=== PATIENT | female | born 1985 | race Caucasian/White ===

== ENCOUNTER → 2020-08-05 12:37 | Outpatient (CLI) | payer BC, SELFPAY ==
--- NOTE | ~2020-08-05 | MM_ITS ---
EXAMINATION: MM screening chirag BI w denny HISTORY: Screening TECHNIQUE: Craniocaudal and mediolateral oblique 3-D tomosynthesis images were obtained and synthetic 2-D images were generated. CAD analysis was submitted and interpreted. COMPARISON: No prior mammogram is available for comparison at this institution. BREAST PARENCHYMAL COMPOSITION: The breasts are heterogenously dense, which may obscure small masses. FINDINGS: There is no evidence of suspicious mass, calcification, or architectural distortion to sugg est malignancy in either breast. There has been no suspicious interval change. IMPRESSION: 1. No mammographic evidence of malignancy. 2. Recommend routine screening mammography in one year. BI-RADS Category 1: Negative Reviewed, dictated and finalized at location A. AND OUT CIGAR MAKER HAND
== END ==
PROVIDERS: PCP Internal Medicine
DX: Z12.31 Encounter for screening mammogram for malignant neoplasm of breast (principal)
CPT/HCPCS: 77063; 77067

== ENCOUNTER → 2022-11-12 13:40 | Outpatient (CLI) | payer BC, SELFPAY ==
--- NOTE | ~2022-11-12 | MM_ITS ---
EXAMINATION: MM screening chirag BI w denny HISTORY: Screening mammogram TECHNIQUE: Craniocaudal and mediolateral oblique 3-D tomosynthesis images were obtained and synthetic 2-D images were generated. CAD analysis was submitted and interpreted. COMPARISON: 08/05/2020 BREAST PARENCHYMAL COMPOSITION: The breasts are heterogeneously dense, which may obscure small masses . FINDINGS: No suspicious mass, calcification, or architectural distortion are identified in either miranda ast to suggest malignancy. There has been no suspicious interval change. IMPRESSION: 1. No mammographic evidence of malignancy. 2. Recommend routine screening mammography in one year. BI-RADS Category 1: Negative Reviewed, dictated and finalized at location A.
== END ==
PROVIDERS: PCP Internal Medicine; Visit Provider Obstetrics & Gynecology
DX: Z12.31 Encounter for screening mammogram for malignant neoplasm of breast (principal)
CPT/HCPCS: 77063; 77067

== ENCOUNTER 2024-03-14 10:28 | Outpatient (CLI) | payer OTHER, SELFPAY ==
--- NOTE | ~2024-03-14 | MM_ITS ---
EXAMINATION: MM screening chirag BI w denny HISTORY: Screening TECHNIQUE: Craniocaudal and mediolateral oblique 3-D tomosynthesis images were obtained and synthetic 2-D images were generated. CAD analysis was submitted and interpreted. COMPARISON: Comparison to multiple prior studies sequentially, with oldest reviewed study dated 08/05. BREAST PARENCHYMAL COMPOSITION: Dense: The breasts are extremely dense, which lowers the sensitivity of mammography. FINDINGS: There is no evidence of suspicious mass, calcification, or architectural distortion to sugg est malignancy in either breast. There has been no suspicious interval change. IMPRESSION: 1. No mammographic evidence of malignancy. 2. Recommend routine screening mammography in one year. BI-RADS Category 1: Negative Reviewed, dictated and finalized at location B.
== END 2024-03-14 10:29 ==
LOC: MICIMG 10:32
PROVIDERS: PCP Obstetrics & Gynecology; Visit Provider Internal Medicine
DX: Z12.31 Encounter for screening mammogram for malignant neoplasm of breast (principal)
CPT/HCPCS: 77063; 77067

== ENCOUNTER 2025-05-30 13:33 | Outpatient (CLI) | payer OTHER, SELFPAY ==
--- NOTE | ~2025-05-30 | MM_ITS ---
EXAMINATION: MM screening chirag BI w denny HISTORY: Screening TECHNIQUE: Craniocaudal and mediolateral oblique 3-D tomosynthesis images were obtained and synthetic 2-D images were generated. CAD analysis was submitted and interpreted. COMPARISON: Comparison to multiple prior studies sequentially, with oldest reviewed study dated 08/05/2020. BREAST PARENCHYMAL COMPOSITION: Dense: The breasts are extremely dense, which lowers the sensitivity of mammography. FINDINGS: There is an asymmetry in the left breast in the periareolar location on CC view. The right breast is stable without evidence for malignancy. IMPRESSION: 1. New left breast asymmetry. 2. Additional mammographic views and possible breast ultrasound are recommended. BI-RADS Category 0: Incomplete: Needs additional imaging evaluation. Reviewed, dictated and finalized at location O. ITURE FINISHER HELPER IMPRESSION: 1. New left breast asymmetry. 2. Additional mammographic views and possible breast ultrasound are recommended . BI-RADS Category 0: Incomplete: Needs additional imaging evaluation.
== END 2025-05-30 13:34 | disposition home or self-care (01) ==
LOC: MICIMG 13:34
PROVIDERS: PCP Obstetrics & Gynecology
DX: Z12.31 Encounter for screening mammogram for malignant neoplasm of breast (principal); N64.89 Other specified disorders of breast
CPT/HCPCS: 77063; 77067

== ENCOUNTER 2025-07-23 08:59 | Outpatient (CLI) | payer OTHER, SELFPAY ==
--- OUTSIDE RECORDS SUMMARY | 2025-07-22 09:30 | XMS_ITS | Encounter Summary ---
Author Organization [facility] Healthcare Address [address] [place] [address] Care Team Providers Care Service Desk Associate Name Role Phone Irena Mcgee MD Primary Care Provider + Reason for Visit * Reason Comments Gynecologic Exam Encounter Details Date Type Department Care Team (Late st Contact Info) Description 07/22/2025 9:30 AM SENIOR MANAGER ASSET PROTECTION Office Visit [facility] [address] [address] Debi Gould MD [address] [id number] Routine gynecological examination (Primary Dx); Cervical cancer screening; Screening breast examination Social History Tobacco Use Types Packs/Day Years Used Date Smoking Tobacco: Never Smokeless Tobacco: Never Tobacco Cessation:Counseling Given: Not Answered Alcohol Use Standard Drinks/Week Comments No 0 (1 standard drink = 0.6 oz pur e alcohol) AUDIT-C Answer Date Recorded Q1: How often do you have a drink containing alc ohol? 2-4 times a month 12/04/2024 Q2: How many drinks containi ng alcohol do you have on a typical day when you are drinking? 1 or 2 12/04/2024 Frequency of Binge Drinking Not on file 11/22 PHQ-2 Answer Date Recorded PHQ-2 Total Score (If total score is 3 or more points, staff should administer the PHQ-9) 0 12/04/2024 Comments No Sex and Gender Information Value Date Recorded Sex Assigned at Not on file Legal Sex Female 5:54 AM SENIOR MANAGER ASSET PROTECTION Gender Identity Not on file Sexual Orientation Not on file documented as of this encounter Last Filed Vital Signs Vital Sign Reading Time Taken Comments Blood Pressure 128/81 07/22/2025 9:37 AM SENIOR MANAGER ASSET PROTECTION Pulse - - Temperature - - Respiratory Rate - - Oxygen Saturation - - Inhaled Oxygen Concentration - - Weight 73.5 kg (162 lb) 07/22/2025 9:37 AM SENIOR MANAGER ASSET PROTECTION Height 162.6 cm (5' 4.02) 07/22/2025 9:37 AM CS T Body Mass Index 27.79 07/22/2025 9:37 AM SENIOR MANAGER ASSET PROTECTION documented in this encounter Functional Status * BP Location Answer Date of Assessment Author Left arm 07/22/2025 9:37 AM SENIOR MANAGER ASSET PROTECTION Ernesto Thompson MA * BP Location Answer Date of Assessment Author Left arm 07/22/2025 9:37 AM SENIOR MANAGER ASSET PROTECTION Ernesto Thompson MA documented as of this encounter Ordered Prescriptions Prescription Sig Dispense Quantity Refills Last Filled Start Date End Date desog-e.estradioL/e .estradioL (Kariva, 28,) 0.15-0.02 mgx21 /0.01 mg x 5 per tablet Take 1 tablet by mouth daily 84 tablet 3 07/22/2025 documented in this encounter Plan of Treatment Pending Results Name Type Priority Associated Diagnoses Date/Time Pap with reflex to High Risk HPV and Genotyping (Cytology Component) Pathology and Cytology Routine Cervical cancer screening 07/22/2025 10:12 AM SENIOR MANAGER ASSET PROTECTION Scheduled Orders Name Type Priority Associated Diagnoses Orde r Schedule Pap with reflex to High Risk HPV and Genotyping (Cytology Component) Pathology and Cytology Routine Cervical cancer screening Expected: 07/22/2025, Expires: 07/22/2026 documented as of this encounter Results * ThinPrep processing (Molecular component) (07/22/2025 12:00 PM SENIOR MANAGER ASSET PROTECTION) ThinPrep processing (Molecular component) Specimen received for processing. Endocervical 07/22/2025 12:0 0 PM SENIOR MANAGER ASSET PROTECTION 07/22/2025 4:48 PM SENIOR MANAGER ASSET PROTECTION us Debi Guold MD LAB BODY FLUIDS AND STOOLS ORDERABLES Final Result [facility] [address] Department [place] [address] documented in this encounter Visit Diagnoses Diagnosis Routine gynecological examination- Primary Cervical cancer screening Screening for malignant neoplasm of the cervix Screening breast examination Other screening breast examination documented in this encounter Discontinued Medications Medication Sig Discontinue Reason Start Date End Da te desog-e.estradioL/e.estr adioL (Kariva, 28,) 0.15-0.02 mgx21 /0.01 mg x 5 per tablet TAKE 1 TABLET BY MOUTH EVERY DAY Reorder 02/19/2025 07/22/2025 documented as of this encounter Care Teams Service Desk Associate Relationship Specialty Start Date End Date Irena Mcgee MD [facility] [address] Kelley [address] [address] PCP - General Internal Medicine 12/04/24 documented as of this encounter
--- OUTSIDE RECORDS SUMMARY | 2025-07-22 12:56 | XMS_ITS | Encounter Summary ---
Author Organization [facility] Healthcare Address [address] [place] [address] Care Team Providers Care Regional Rehabilitation Director Name Role Phone Irena Mcgee MD Primary Care Provider + Encounter Details Date Type Department Care Team (Latest Contact Info) Description 07/22/2025 12:56 PM SHAG TRUCK DRIVER - 07/22/2025 11:59 PM SHAG TRUCK DRIVER Hospital Encounter [address] [address] Cervical cancer screening Discharge Disposition: Discharge to home or self care Social History Tobacco Use Types Packs/Day Years Used Date Smoking Tobacco: Never Smokeless Tobacco: Never Alcohol Use Standard Drinks/Week Comments No 0 [...] on file Legal Sex Female 5:54 AM SHAG TRUCK DRIVER Gender Identity Not on file Sexual Orientation Not on file documented as of this encounter Medications at Time of Discharge amLODIPine (NORVASC) 5 mg tablet Take 1 tablet (5 mg total) by mouth daily 90 tablet 4 02/08/2025 02/08/2026 cholecalciferol (VITAMIN D-3) 5,000 unit capsule Take 1 capsule (5,000 Units total) by mouth daily desog-e.estradioL /e.estradioL (Kariva, 28,) 0.15-0.02 mgx21 /0.01 mg x 5 per tablet Take 1 tablet by mouth daily 84 tablet 3 07/22/2025 documented as of this encounter Discharge Disposition Disposition Code Departure Means Destination Discharge to home or self care documented in this encounter Plan of Treatment Pending Results Name Type Priority Associated Diagnoses Date/Time Pap with reflex to High Risk HPV and Genotyping (Cytology Component) Pathology and Cytology Routine Cervical cancer screening 07/22/2025 10:12 AM SHAG TRUCK DRIVER Scheduled Orders Name Type Priority Associated Diagnoses Order Schedule Pap with reflex to High Risk HPV and Genotyping (Cytology Component) Pathology and Cytology Routine Cervical cancer screening Once for 1 Occurrences starting 07/22/2025 until 07/22/2025 documented as of this encounter Procedures Procedure Name Priority Date/Time Associated Diagnosis Comments THINPREP PROCESSING (MOLECULAR COMPONENT) Routine 07/22/2025 12:00 PM SHAG TRUCK DRIVER Cervical cancer screening documented in this encounter Results * ThinPrep processing (Molecular component) (07/22/2025 12:00 PM SHAG TRUCK DRIVER) ThinPrep processing (Molecular component) Specimen received for processing. Endocervical 07/22/2025 12:0 0 PM SHAG TRUCK DRIVER 07/22/2025 4:48 PM SHAG TRUCK DRIVER Debi Gould MD LAB BODY FLUIDS AND STOOLS ORDERABLES Final Result [facility] [address] Department of Laboratories [place], [place] [phone] documented in this encounter Visit Diagnoses Diagnosis Cervical cancer screening Screening for malignant neoplasm of the cervix documented in this encounter Care Teams Regional Rehabilitation Director Relationship Specialty Start Date End Date Irena Mcgee MD [address] [place] [address] DR Allie HURTADO [address] [place] [id number] PCP - General Internal Medicine 12/04/24 documented as of this encounter
--- NOTE | ~2025-07-23 | MMUS_ITS ---
EXAMINATION: MM diagnostic chirag LT w denny, Additional imaging US, US breast LT limited HISTORY: Additional imaging TECHNIQUE: Craniocaudal and mediolateral oblique 3-D tomosynthesis images were obtained and synthetic 2-D images were generated. CAD analysis was submitted and interpreted. Grayscale sonography over the area(s) of interest with color Doppler if there is a finding. COMPARISON: May 30. Multiple older prior studies. BREAST PARENCHYMAL COMPOSITION: Dense: The breasts are extremely dense, which limits evaluation of noncalcified lesions MAMMOGRAM FINDINGS: There are multiple tubular structures in the retroareolar region. There is a persistent circumscribed mass in the retroareolar region as well. There are no suspicious calcifications. No unexplained architectural distortion is seen. There are no skin or nipple abnormalities identified. There is no adenopathy seen on the images submitted. ULTRASOUND FINDINGS: In the retroareolar region, There are multiple dilated, fluid-filled ducts. They contain mobile debris. There are ducts that appear to be entirely filled with debris. There is one duct in the 3:00 retroareolar region with suggestion of some rounded filling defects, not well from the remainder of the duct's debris. These are marked on the images from the additional ultrasound imaging of July 26. In addition, in the retroareolar region, there is an 8 mm, ovoid, hypoechoic mass with a parallel orientation. This is not definitively related to a duct, but it is at least adjacent to a duct. Origination in the duct is not excluded. There is an additional 6 mm, circumscribed, hypoechoic mass with a linear echogenic septation or striation at 3:00. This is very superficially located, at least partially in the skin layer. It may represent a skin lesion, such as an epidermoid cyst, although this cannot be stated with certainty. There are multiple small, simple cysts present. There is no axillary adenopathy. Benign-appearing lymph nodes are seen in the axilla. IMPRESSION: 1. Retroareolar mass is indeterminate, and ultrasound-guided core biopsy is recommended. 2. Duct entirely filled with debris at 3:00, with some of the filling defects appearing somewhat rounded. A second ultrasound-guided biopsy should be considered, with a decision made at the time of biopsy by the sampling radiologist. 2. There is an additional lesion which could represent a skin lesion. Six-month follow-up of this structure is recommended. BI-RADS 4 - Suspicious for malignancy. Tissue diagnosis is recommended. Reviewed, dictated and finalized at location A. R TUNE UP SPECIALIST IMPRESSION: 1. Retroareolar mass is indeterminate, and ultrasound-guided core biopsy is rec ommended. 2. Duct entirely filled with debris at 3:00, with some of the filling defects a ppearing somewhat rounded. A second ultrasound-guided biopsy should be consider ed, with a decision made at the time of biopsy by the sampling radiologist. 2. There is an additional lesion which could represent a skin lesion. Six-month follow-up of this structure is recommended. BI-RADS 4 - Suspicious for malignancy. Tissue diagnosis is recommended.
--- OUTSIDE RECORDS SUMMARY | 2025-07-23 09:14 | XMS_ITS | Encounter Summary ---
Author Organization [facility] Address [address] [place] [address] Phone Care Team Providers Care Sweeper Cleaner Industrial Name Role Phone Usman Zhao MD Primary Care Provider [phone] Irena Mcgee MD Primary Care Provider + Encounter Details Date Type Department Care Team (Latest Contact Info) Description 11/02/2017 Orders Only [facility] CONVERSION Scanning, Provider Social History Tobacco Use Types Packs/Day Years Used Date Smoking Tobacco: Never Smokeless Tobacco: Never Alcohol Use Standard Drinks/Week Comments No 0 (1 standard drink = 0.6 oz pur e alcohol) Comments Yes Sex and Gender Information Value Date Recorded Sex Assigned at Not on file Legal Sex Female 5:54 AM B2B SALES CONSULTANT Gender Identity Not on file Sexual Orientation Not on file documented as of this encounter Plan of Treatment Not on file documented as of this encounter Procedures Procedure Name Priority Date/Time Associated Diagnosis Comments OBSTETRIC/GYNECOLOGY ULTRASONOGRAPHY REPORT 12/02/2017 8:44 AM CDT OBSTETRIC/GYNECOLOGY ULTRASONOGRAPHY REPORT 11/02/2017 10:21 AM CDT documented in this encounter Results * OBSTETRIC/GYNECOLOGY ULTRASONOGRAPHY REPORT (12/02/2017 8:44 AM CDT) Anatomical Region Laterality Modality Ultrasound us Provider Scanning IMG OB US PROCEDURES Final Res ult * OBSTETRIC/GYNECOLOGY ULTRASONOGRAPHY REPORT (11/02/2017 10:21 AM CDT) Anatomical Region Laterality Modality Ultrasound us Provider Scanning IMG OB US PROCEDURES Final Res ult documented in this encounter Visit Diagnoses Not on filedocumented in this encounter Care Teams Sweeper Cleaner Industrial Relationship Specialty Start Date End Date Usman Zhao MD PCP - General 04/29/17 12/03/24 Irena Mcgee MD [address] [place] [address] DR Allie HURTADO [address] [place] [id number] PCP - General Internal Medicine 12/04/24 documented as of this encounter
--- OUTSIDE RECORDS SUMMARY | 2025-07-23 09:14 | XMS_ITS | Clinical Summary ---
Author Organization [employer] (now [employer] Amauri allen [facility] Address [address] [facility] [address] [place] [address] Phone Care Team Providers Care Bench Hand Machine Name Role Phone Usman Zhao MD Primary Care Provider [phone] Social History Tobacco Use Types Packs/Day Years Used Date Smoking Tobacco: Never Assessed Comments Unknown Sex and Gender Information Value Date Recorded Sex Assigned at Not on file Legal Sex Female 10:21 AM SAFETY TECH Gender Identity Not on file Sexual Orientation Not on file Plan of Treatment Health Maintenance Due Date Last Done Comments DTAP/TDAP/TD VACCINES (1 - Tdap) 2002 HEPATITIS B VACCINES (1 of 3 - 19+ 3-dose series) 02/23 HPV/Cotest (21-29) 2004 CERVICAL CANCER SCREENING 2013 HPV/Cotest (30-65) 2013 PAP SMEAR 2013 BREAST CANCER SCREENING 2023 INFLUENZA VACCINE (#1) 2025 HPV VACCINES (No Doses Required) Completed Insurance [facility] BLUE ACCESS/TRUE BLUE PPO Care Teams Bench Hand Machine Relationship Specialty Start Date End Date Usman Zhao MD PCP - General Internal Medicine 08/22/17
--- OUTSIDE RECORDS SUMMARY | 2025-07-23 09:14 | XMS_ITS | Clinical Summary ---
Author Organization [facility] C Address [address] [place] [address] Phone Care Team Providers Care Line Maintenance Supervisor Name Role Phone Irena Mcgee MD Primary Care Provider + Allergies No known active allergies Medications cholecalciferol (VITAMIN D-3) 5,000 unit capsule Take 1 capsule (5,000 Units total) by mouth daily Active amLODIPine (NORVASC) 5 mg tablet Take 1 tablet (5 mg total) by mouth daily 90 tablet 4 5 02/09/20 26 Active desog-e.estradi oL/e.estradioL (Kariva, 28,) 0.15-0.02 mgx21 /0.01 mg x 5 per tablet Take 1 tablet by mouth daily 84 tablet 3 5 Active desog-e.estradi oL/e.estradioL (Kariva, 28,) 0.15-0.02 mgx21 /0.01 mg x 5 per tablet TAKE 1 TABLET BY MOUTH EVERY DAY 84 tablet 1 5 07/22/20 25 Discontinu ed(Reorder ) Active Problems Problem Noted Date Diagnosed Date Elevated blood pressure reading 01/29/2025 Assessment & Plan (01/29/2025 10:19 AM CDT): Will have patient keep blood pressure log for the next two weeks and send back results. Will determine at that time if antihypertensive is needed. H/O: section 04/06/2018 H/O gestational diabetes mellitus, not currently 04/06/2018 Assessment & Plan (12/04/2024 3:18 PM CDT): Due for A1c Vitamin D deficiency 10/24/2017 Assessment & Plan (12/04/2024 3:18 PM CDT): Due for labs, will adjust supplement as needed. Encounters Date Type Department Care Team Description 07/22/2025 12:56 PM GARMENT PARTS CUTTER MACHINE - 07/22/2025 11:59 PM GARMENT PARTS CUTTER MACHINE Hospital Encounter [address] [phone] Cervical cancer screening Discharge Disposition: Discharge to home or self care 07/22/2025 9:30 AM GARMENT PARTS CUTTER MACHINE Office Visit [address] [place] [phone] Debi Gould MD Routine gynecological examination (Primary Dx); Cervical cancer screening; Screening breast examination 05/31/2025 Results Follow-Up [address] [phone] Debi Gould MD SCAN - RADIOLOGY/IMAGING 05/31/2025 Orders Only [address] [phone] Debi Gould MD from Last 3 Months Immunizations Immunization Administration Dates Next Due Hep A, Unspecified 05/11/2017 Influenza, Quadrivalent, Sarina l Culture-based MDCK, Antibiotic Free, Intramuscular 05/11/2017 Influenza, Quadrivalent, Spl it, Preservative Free, Intramuscular 03/17/2021,05/14/2020,03/27/2018 Influenza, Trivalent, Cell C ulture-based MDCK, Preservative Free, Antibiotic Free, Intramuscular 06/08/2024,09/30/2023 Influenza, Trivalent, Preser vative Free, Intramuscular 08/17/2016 MMR 05/11/2017 Tdap 01/11/2018,02/08/2015 Surgical History Surgery Date Site/Laterality Comments WISDOM TOOTH EXTRACTION SECTION Medical History Medical History Date Comments Gestational diabetes Family History Medical History Relation Name Comments Hyperlipidemia Father Hypertension Father Prostate cancer Father Diabetes Maternal Grandmother Hyperlipidemia Mother Hypertension Mother Coronary artery disease Other Relation Name Status Comments Father Alive Maternal Grandmother Mother Alive Other Social History Tobacco Use Types Packs/Day Years [...] on file Legal Sex Female 5:54 AM GARMENT PARTS CUTTER MACHINE Gender Identity Not on file Sexual Orientation Not on file Obstetrics History Para Term AB IAB SAB Ectopic Multiple Livin g Live Births 1 1 1 0 1 1 Date Outcome GA Total Labor Labor/2nd/3rd Weight Sex Type Anes PTL Anum A1 A5 Name Clin 2017 Term 39w 0d 0h 02m 0h 02m 3.35 kg (7 lb 6.2 oz) F CS-LT ranv Spinal N Livin g 9 9 [facility] [facility] Roland Gould MD Complications:None [facility] Last Filed Vital Signs Vital Sign Reading Time Taken Comments Blood Pressure 128/81 07/22/2025 9:37 AM GARMENT PARTS CUTTER MACHINE Pulse 105 02/07/2025 9:31 AM CDT 6 min recovery Temperature 36.9 C (98.4 F) 11/11/2024 3:06 PM CDT Respiratory Rate 20 11/11/2024 3:06 PM CDT Oxygen Saturation 99% 01/29/2025 10: 09 AM CDT Inhaled Oxygen Concentration - - Weight 73.5 kg (162 lb) 07/22/2025 9:37 AM GARMENT PARTS CUTTER MACHINE Height 162.6 cm (5' 4.02) 07/22/2025 9 :37 AM GARMENT PARTS CUTTER MACHINE Body Mass Index 27.79 07/22/2025 9:37 AM GARMENT PARTS CUTTER MACHINE Plan of Treatment Health Maintenance Due Date Last Done Comments Hepatitis B Screening 2001 HPV Vaccines (1 - 3-dose SCDM series) 2010 Varicella Vaccines (1 of 2 - 13+ 2-dose series) 06/08/2017 Breast Cancer Screening-Mammogram 03/15/2025 03/15/2024, 08/05/2020 Influenza Vaccine (#1) 2025 , 09/30/2023, 03/17/2021, Additional history exists Depression Screening 12/04/2025 12/04/2024, 05/16/2020, 02/02/2018 Regular Well Visit/Exam 18-64 12/04/2025 12/04/2024, 10/05/2023, 10/06/2022, Additional history exists DTaP/Tdap/Td Vaccine (3 - Td or Tdap) 01/12/2028 01/11/2018, 02/08/2015 Cervical Cancer Screening 10/04/20282023, 10/06/2022, 10/05/2021, Additional history exists Hepatitis C Screening Completed 12/04/2024 Pneumococcal vaccine <65 Aged Out No longer eligible based on patient's age to complete this topic Procedures Procedure Name Priority Date/Time Associated Diagnosis Comments THINPREP PROCESSING (MOLECULAR COMPONENT) Routine 07/22/2025 12:00 PM GARMENT PARTS CUTTER MACHINE Cervical cancer screening SCAN - RADIOLOGY/IMAGING 05/31/2025 6:45 AM GARMENT PARTS CUTTER MACHINE HEPATITIS C ANTIBODY Routine 12/04/2024 3:41 PM CDT Preventative health care Need for hepatitis C screening test PAP WITH REFLEX TO HIGH RISK HPV Routine 10/05/2023 2:03 PM CDT Screening for malignant neoplasm of the cervix SCREENING MAMMOGRAM 2D BILATERAL Schedule Routine, Read Routine (OP Routine) 08/05/2020 from Last 3 Months or Most Recently Relevant to Health Maintenance Results * ThinPrep processing (Molecular component) (07/22/2025 12:00 PM GARMENT PARTS CUTTER MACHINE) Pathologist [facility] [place] ThinPrep processing (Molecular component) Specimen received for processing. Endocervical 07/22/2025 12:0 0 PM GARMENT PARTS CUTTER MACHINE 07/22/2025 4:48 PM GARMENT PARTS CUTTER MACHINE Debi Gould MD LAB BODY FLUIDS AND STOOLS ORDERABLES Final Result Performing Organization Address [facility] Co de Phone Number JULISSA [address] [place] [address] * SCAN - RADIOLOGY/IMAGING (05/31/2025 6:45 AM GARMENT PARTS CUTTER MACHINE) Anatomical Region Laterality Modality Other Debi Gould MD Final Resul t * Hepatitis C antibody Blood (12/04/2024 3:41 PM CDT) Pathologist [facility] Hep C Ab Nonreactive Nonreactive Comment:Antibodies to HCV no t detected. Does NOT exclude the possibility of recent exposure to HCV. Current interpretive data was last revised on 22 Blood 12/04/2024 3:41 PM CDT 12/04/2024 5:30 PM CDT Irena Mcgee MD LAB MICROBIOLOGY - GENER AL ORDERABLES Final Result Performing Organization Address City/[facility] Co de Phone Number JULISSA [facility] [place] [address] * Pap with reflex to High Risk HPV and Genotyping (Cytology Component) (10/05/2023 2:03 PM CDT) Endocervical (Pap test) 10/05/2023 2:03 PM CDT 10/08/2023 9:36 AM CDT Narrative PATHOLOGY [facility] - 10/11/2023 2:48 PM CDT EPIC results best viewed via link to PDF [address] [place], [place] [address] Tele: Kinsey Mercedes MD - Merchant Tailor CYTOLOGY REPORT Note to Patients: This report may contain a detailed description of human tissue sent by a health care provider to the laboratory for pathologic evaluation. The content of this report is essential for diagnosis and may provide important critical findings. This information may be unfamiliar to patients to review without a medical professional present. It is advised that the patient review this report in the presence of a health care provider who can answer questions and explain the details. Patient Name: CHRISTIANO CARMICHAEL Address: [address] [place] [address] Gender: F : 1985 (Age: 38) Service: Location: N : [id number] [facility] #: [id number] Patient Type: [facility] SPECIMEN Taken: 10/05/2023 Reported: 10/11/2023 Physician(s): Debi Gould M.D. FINAL DIAGNOSIS: SOURCE OF SPECIMEN - ThinPrep Pap w/ reflex HPV: STATEMENT OF ADEQUACY Source: Cervical/Endocervical - Satisfactory for interpretation - Endocervical/Transformation zone component absent or insufficient - Case screened using computer assisted imaging technology and manually re- screened by a photo intern. GENERAL CATEGORIZATION: - Negative for intraepithelial lesion or malignancy cad/10/11/2023 14:48Ophelia Gomez M.S., KRYSTIAN (ASCP) Report Reviewed and Electronically Signed By Ophelia Gomez M.S., CT (ASCP)Clerical Data Follow A; [id number] CLINICAL DIAGNOSIS AND HISTORY Last Menstrual Period: 09/17 Menstrual History: Regular Cycles Contraceptive History: Control Pill REPORT IMAGES AND/OR SCANNED DOCUMENTS ONLY VIEWABLE IN PDF FORMAT The Pap test is a screening test used to aid in the detection of cervical cancer and its precursors. It should not be the sole means by which malignant and premalignant lesions are diagnosed. Both false negative and false positive results may occur. It also has poor sensitivity for the detection of endometrial lesions and should not be used to evaluate suspected endometrial abnormalities. For these reasons it is most important to obtain Pap tests at regular intervals, as recommended by your physician or nurse practitioner. us Debi Gould MD LAB CYTOLOGY ORDERABLES Fin al Result PATHOLOGY [facility] Laboratory [address] [address] * Screening Mammogram 2D Bilateral (08/05/2020) Anatomical Region Laterality Modality Breast Bilateral Mammography us Chaparro Yarbrough MD IMG MAMMO PROCEDURES Final Res ult from Last 3 Months or Most Recently Relevant to Health Maintenance Insurance [facility] CIG OPEN ACCESS CIGNA OPEN ACCESS CIGNA OPEN ACCESS Advance Directives For more information, please contact: [phone] * Full Code (Latest Code Status on File) Date Activated Date Inactivated Comments 01/30/2018 12:26 PM 02/02/2018 8:54 PM * Full Code Date Activated Date Inactivated Comments 01/30/2018 8:22 AM 01/30/2018 12:26 PM Full CPR in c ase of cardiopulmonary arrest Care Teams Line Maintenance Supervisor Relationship Specialty Start Date End Date Irena Mcgee MD [address] [place] [address] DR Kelley [address] [address] PCP - General Internal Medicine 12/04/24
--- OUTSIDE RECORDS SUMMARY | 2025-07-23 09:14 | XMS_ITS | Clinical Summary ---
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 Gender Identity Not on file Sexual Orientation Not on file Plan of Treatment Health Maintenance Due Date Last Done Comments Hepatitis C Virus (HCV) Screening 1985 TdaP Immunization 1985 Hepatitis B Immunization (1 of 3 - 19+ 3-dose series) 2002 Pap Smear 2004 Human Papillomavirus (HPV) Immunization (1 - 3-dose SCDM series) 2010 Cervical Cancer Screening (CCS) 2013 HPV/Cotest 2013 Influenza Immunization (#1) 03/25/202504/25, 03/27/2018 SARS-COV-2 Immunization ( season) 2025 Respiratory Syncytial Virus (RSV) Immunization (Adult) (1 - 1-dose 75+ series) 2058 Meningococcal Immunization (ACWY) Aged Out No longer eligible b ased on patient's age to complete this topic Pneumococcal Immunization Combined Aged Out No longer eligible b ased on patient's age to complete this topic Rotavirus Immunization Aged Out No lo nger eligible based on patient's age to complete this topic
== END 2025-07-23 09:00 | disposition home or self-care (01) ==
LOC: CHSIMG 09:04
PROVIDERS: Visit Provider Obstetrics & Gynecology
DX: R92.8 Other abnormal and inconclusive findings on diagnostic imaging of breast (principal)
CPT/HCPCS: 76642; 77061; 77065; G0279